=== PATIENT | male | born 1980 | race African-American/Black ===

== ENCOUNTER 2017-10-14 12:58 | Emergency (ER) | payer MEDICAID ==
[~2017-10-14] VITALS: Ht 180.3 cm; Wt 82.1 kg
[2017-10-14 13:20] VITALS: Ht 180.3 cm; Wt 82.1 kg
[2017-10-14 15:02] VITALS: BP 121/75
== END 2017-10-14 15:02 | disposition home or self-care (01) ==
LOC: ED 12:58
DX: S63.501A Unspecified sprain of right wrist, initial encounter (principal); F17.210 Nicotine dependence, cigarettes, uncomplicated; W18.30XA Fall on same level, unspecified, initial encounter; Y93.89 Activity, other specified; Y92.89 Other specified places as the place of occurrence of the external cause; Y99.8 Other external cause status
CPT/HCPCS: Q0092

== ENCOUNTER 2019-08-12 00:24 | Emergency (ER) | payer SELFPAY ==
[~2019-08-12] VITALS: Ht 180.3 cm; Wt 90.7 kg
[2019-08-12 00:25] VITALS: Ht 180.3 cm; Wt 90.7 kg
[2019-08-12 02:04] VITALS: BP 123/88
== END 2019-08-12 02:04 | disposition home or self-care (01) ==
LOC: ED 00:24
DX: S01.112A Laceration without foreign body of left eyelid and periocular area, initial encounter (principal); S40.012A Contusion of left shoulder, initial encounter; V18.4XXA Pedal cycle driver injured in noncollision transport accident in traffic accident, initial encounter; Y93.I9 Activity, other involving external motion; Y92.488 Other paved roadways as the place of occurrence of the external cause; Y99.8 Other external cause status
CPT/HCPCS: J1885; Q0092